=== PATIENT | male | born 1995 | race Caucasian/White ===

== ENCOUNTER 2022-01-03 00:20 | Emergency (ER) | payer MEDICAID ==
[~2022-01-03] VITALS: Ht 180.3 cm; Wt 73.0 kg
[2022-01-03 00:23] VITALS: BP 110/72
== END 2022-01-03 00:44 | disposition left against medical advice (07) ==
LOC: ER 00:20
DX: Z53.21 Procedure and treatment not carried out due to patient leaving prior to being seen by health care provider (principal)